=== PATIENT | male | born 1940 | race Caucasian/White ===

== ENCOUNTER 2017-01-22 11:07 | Inpatient (IN) | payer MEDICARE, BC ==
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
--- NOTE | ~2017-01-22 | CN ---
Consultation Report [facility] [address] [place]. [address] NAME: LYNN WILLIS : 39 STATUS : ADM IN PAT#: [id number] AGE: 76 ADM/REG DATE : 01/22/17 MR#: [id number] REPORT SERV DATE: 01/26/17 DICTATED BY: RAHAT MUNIZ DATE: 01/26/17 REPORT STATUS : Draft TRANSCRIBED BY: MODL DATE: 01/26/17 PALLIATIVE CARE CONSULTATION DATE OF CONSULTATION: 01/26/2017 This is a 1-hour consultation. ADR: To BRIAN eubanks. REASON FOR CONSULTATION: Severe cardiac and respiratory disease with progressive decline. BRIEF HISTORY: Mr. Willis is a 76-year-old white male has a longstanding history of endogenous obesity with increasing weight, poorly-controlled diabetes, and severe hypercapnic hypoxemic respiratory failure. He has been utilizing home O2 at approximately 6 L. His machine evidently goes as high as 8. He is now admitted with weight gain and signs and symptoms of cardiac disease superimposed upon his severe pulmonary disease. He underwent a cardiac catheterization showing significant LAD disease. He also has an echocardiogram showing a decline in his ejection fraction from 55% to 35%. Ventricular diastolic dysfunction is noted. He has a DNR and a living will on the chart. PAST MEDICAL HISTORY: Includes hypertension, question of obstructive sleep apnea likely obesity hypoventilation syndrome, COPD, a TIA in 2012 involving his right brain with some left-sided weakness and no residual. He has had multiple orthopedic problems and had a preserved ejection fraction till now. He is nearly blind in his left eye due to retinal detachment and two retinal operations. He also had a retinal reattachment of the right eye. He presented this time with atrial fibrillation which I believe is new. SOCIAL HISTORY: He is a very heavy smoker, having stopped some thirty years ago with having smoked two to five packs a day for some thirty years. He is , lives alone with a small dog, named "little bit." He has a fenced yard and he has been living independently. His daughter is his POA, she is an assistant county attorney, and has been very helpful in his care as has his son-in-law. He also has two grandsons, whom he is rebuilding a pair of [employer] cars and is hopeful that he can some days hopefully finish these before he dies. 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 No illicit drug use. Occasional alcohol in the past, very little now. REVIEW OF SYSTEMS: Includes increasing weight, fatigue, and weakness, hearing loss for which he wears hearing aids. He has ongoing chest pain and has had some leg swelling, shortness of breath, and cough. He has multiple orthopedic surgeries, a "dislocated spine" and does take pain medication throughout the day for symptom control. Consultation Report [place] [id number] [place]. [address] NAME: LYNN WILLIS : 39 STATUS : ADM IN [facility]#: [id number] AGE: 76 ADM/REG DATE : 01/22/17 MR#: [id number] REPORT SERV DATE: 01/26/17 DICTATED BY: RAHAT MUNIZ DATE: 01/26/17 REPORT STATUS : Draft TRANSCRIBED BY: JAIDEN DATE: 01/26/17 His current dyspnea score is 3/10, sitting at rest. His pain score is 4/10. His PPS is 50%. PHYSICAL EXAMINATION: VITAL SIGNS: Blood pressure is 106/64, his respiratory rate is 18 to 22, pulse 66 to 80 irregularly irregular, temperature 97.1, his 6 L pulse ox is 96%. GENERAL: We have an alert, morbidly obese gentleman with a BMI of 43, sitting in the edge of the bed, consuming his lunch. ENT: Hard of hearing. CARDIOVASCULAR: Irregularly irregular. S1 and S2. Distant heart sounds. CHEST: Auscultation of his chest shows coarse distant breath sounds with soft wheezes throughout. GI: Obese abdomen, nontender, no hernias. MUSCULOSKELETAL: Multiple joint complaints. NEUROLOGICAL: He is awake, alert, appropriate and cooperative. He moves all extremities spontaneously and to command. He has markedly decreased vision in the left eye, able to sense movement only. PSYCHIATRIC: He is appropriate and very concerned about his future, but does not believe that he is ready for hospice yet. SKIN: Warm and dry. There is 1+ edema in his lower extremities. There are some mild venous stasis changes. LABORATORY DATA: Reviewed, includes an A1c of 9.5, and albumin of 3.1. Pulmonary function testing was performed showing an FEV1/FVC of 71% of predicted normal, FVC 42%, FEV1 41% or 1.08 L, his diffusing capacity is decreased, but when adjusted for body surface area is a bit better. He is 5 feet 7 inches and weighs 274 pounds. DISCUSSION: This 76-year-old gentleman has a plethora of medical issues but, is not terribly insightful as it relates to his underlying medical issues and his prognosis, and he has had family exposures to hospice in the past and believes that this is something which is utilized in the last days of life. We will be discussing this with the daughter to try and support her care of him at home as I suspect and as I have warned him he may have very little warning when his condition declines. He is quite clear about the fact he does not want to be on life support etc. and I have stressed to him the fact that having extra support at home to try and prevent that from happening especially and an emergency setting is going to be critical. The patient's questions were answered to the best of our ability and he appeared to be appreciated with the visit. Contact phone information was provided. We will follow up with the patient if he is not discharged in the next 24 hours. RW/MODL Consultation Report [address] [place]. [address] NAME: LYNN WILLIS : 39 STATUS : ADM IN [facility]#: [id number] AGE: 76 ADM/REG DATE : 01/22/17 MR#: [id number] REPORT SERV DATE: 01/26/17 DICTATED BY: RAHAT MUNIZ DATE: 01/26/17 REPORT STATUS : Draft TRANSCRIBED BY: JAIDEN DATE: 01/26/17 Rahat Muniz M.D. / [id number] CC: Alberto Jones MD
--- NOTE | ~2017-01-22 | CN ---
Consultation Report [facility] [address] [place]. [address] NAME: LYNN REID : 39 STATUS : ADM IN [facility]#: [id number] AGE: 76 ADM/REG DATE : 01/22/17 MR#: [id number] REPORT SERV DATE: 01/23/17 DICTATED BY: AIDAN NUNES V. DATE: 01/22/17 REPORT STATUS : Draft TRANSCRIBED BY: MODL DATE: 01/22/17 RENAL CONSULT DATE OF CONSULTATION: 01/22/2017 REASON FOR CONSULTATION: Regarding chronic kidney disease management. HISTORY OF PRESENT ILLNESS: The patient is a 76-year-old gentleman with diabetes, obesity, and COPD, who is chronically on 6 L of oxygen at home. He was admitted to [facility] with increased shortness of breath and a creatinine of 1.3. He was given IV Lasix, seen by Cardiology, and felt that he would need evaluation for an ischemic workup. He was subsequently transferred to [facility] for coronary artery catheterization. The patient was found here on cardiac catheterization to have three-vessel coronary disease. Cardiac Surgery has seen the patient. The patient also underwent CTA earlier today and was found to have no evidence of pulmonary embolus. Was found to have pulmonary artery hypertension. No LV gram was done today. PAST MEDICAL HISTORY: 1. Hypertension. 2. Diabetes mellitus times at least 10 years. 3. Dyslipidemia. 4. Chronic respiratory failure with home O2 requirement of 6 L. 5. COPD. 6. TIA in 2012. No known chronic kidney disease. Had no urinary microalbumin in 09/2016. ALLERGIES: INCLUDE CODEINE. MEDICATIONS: At home included albuterol, vitamin C, aspirin, Lumigan, vitamin B12, Lasix, gabapentin, glipizide, lisinopril and hydrochlorothiazide, metformin, multivitamin, oxycodone, potassium, pravastatin, and Spiriva. SOCIAL HISTORY: Former heavy smoker. FAMILY HISTORY: Remarkable for coronary disease and heart failure. SURGICAL HISTORY: He has had cataract surgery and carpal tunnel release. REVIEW OF SYSTEMS: All review of systems was otherwise negative except as described above. PHYSICAL EXAMINATION: VITAL SIGNS: Temperature is 98.2, heart rate 72, blood pressure 113/82. Consultation Report [facility] [address] [place]. [address] NAME: LYNN REID : 39 STATUS : ADM IN PAT#: [id number] AGE: 76 ADM/REG DATE : 01/22/17 MR#: [id number] REPORT SERV DATE: 01/23/17 DICTATED BY: AIDAN NUNES V. DATE: 01/22/17 REPORT STATUS : Draft TRANSCRIBED BY: JAIDEN DATE: 01/22/17 GENERAL: He is a pleasant, obese gentleman with no increased work of breathing at rest. HEENT: Pupils equal, round, and reactive to light. Sclerae were anicteric. Oropharynx is clear with no lesions. NECK: Trachea midline. No thyromegaly. No supraclavicular nodes. No axillary lymph nodes. A few scattered rhonchi bilaterally. HEART: Regular rate and rhythm. No rub. ABDOMEN: Obese. Nondistended. Bowel sounds are physiologic. Trace lower extremity edema. No clubbing. No cyanosis. SKIN: Warm and dry. No rash or lesions. LABORATORY DATA: BUN and creatinine of 50 and 1.3, potassium 4.5, hemoglobin A1c of 9.5%, hemoglobin of 11.5. IMPRESSION: A 76-year-old gentleman with obesity and now coronary artery disease in addition to his chronic hypoxic respiratory failure. He may have chronic kidney disease secondary to longstanding hypertension and diabetes mellitus. His advanced age also is a risk factor for chronic kidney disease. The patient has had two contrasted procedures today to include a CTA and left heart catheterization and will have to be watched closely for post contrast- induced nephropathy. PLAN: 1. Agree with cessation of JED and Lasix. 2. A.m. labs. 3. Obtain urine studies. 4. Obtain renal ultrasound. Partners to see tomorrow, obviously has at least [id number] risk factor for acute kidney injury in the setting of coronary bypass grafting. He also has significant pulmonary morbidity given his underlying hypoxia. Case was also discussed with Dr. Jones. DOUG/JADIEN Aidan uNnes M.D. / [id number] CC: Alberto Jones MD
--- NOTE | ~2017-01-22 | PUL ---
[address] [address] NAME: LYNN REID : 39 STATUS : DIS IN PAT#: [id number] AGE: 76 ADM/REG DATE : 01/22/17 MR#: [id number] REPORT SERV DATE: 01/31/17 DICTATED BY: JACK ALBRIGHT DATE: 01/30/17 REPORT STATUS : Draft TRANSCRIBED BY: MODL DATE: 01/30/17 PULMONARY FUNCTION TEST FEV1 of 1.08 L or 41% predicted. Forced vital capacity 1.52 L or 42% predicted. FEV1/FVC of 71%. DLCO of 16%. INTERPRETATION: Normal airflow. Decreased forced vital capacity. This may indicate poor effort, neuromuscular weakness, or restriction. Consider lung volume testing clinically indicated. No significant bronchodilator response. Very severe decreased DLCO. The patient is too exhausted to perform body box. He is on 6 L nasal cannula. No previous studies are available at this facility. REMEDIOS/JAIDEN Jack Albright M.D. / [id number] CC: MD Alberto Pinon MD
--- NOTE | ~2017-01-22 | DS ---
Discharge Summary [facility] [address] [place]. [address] NAME: LYNN REID : 39 STATUS : DIS IN PAT#: [id number] AGE: 76 ADM/REG DATE : 01/22/17 MR#: [id number] REPORT SERV DATE: 01/28/17 DICTATED BY: FANNIE MAHONEY DATE: 01/27/17 REPORT STATUS : Draft TRANSCRIBED BY: JAIDEN DATE: 01/27/17 ADMISSION DATE: 01/22/2017 DISCHARGE DATE: 01/27/2017 CONSULTATION: 1. Cardiology Dr. Mehran Pond. 2. Cardiothoracic Surgery, Dr. Abner Humphries. 3. Nephrology Dr. Aidan Nunes. 4. Pulmonology Dr. Dane Booth. 5. Palliative Care, Dr. Suresh Muniz. PROCEDURES DONE DURING ADMISSION: Left heart catheterization. CONCLUSION: 1. Severe three vessel flow limiting coronary artery disease. 2. Elevated left ventricular end-diastolic filling pressure. LVEDP 21 mmHg. 3. Left ventriculogram not performed due to chronic kidney disease. 4. Recent echocardiogram September 2016 with normal left ventricular function. RECOMMENDATION: 1. Referral to Cardiothoracic Surgery for consideration for coronary artery bypass grafting during this admission. 2. Intensify medical management and risk factor modification. DISCHARGE DIAGNOSES: 1. Multi-vessel coronary artery disease (known surgical candidate per Cardiothoracic Surgery). 2. Acute on chronic diastolic heart failure. 3. Uncontrolled diabetes. 4. Chronic obstructive pulmonary disease. 5. Chronic hypoxic respiratory failure on home oxygen at 6 L via nasal cannula. 6. 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 7. Previous history of transient ischemic attack. HISTORY OF PRESENT ILLNESS: For detailed HPI, please make reference to Dr. oBo Blanco's dictation on 01/21/2017. This is a 76-year-old male with medical history of COPD on home O2 at 6 L who presented to the emergency room of [facility] with complaints of dyspnea, generalized weakness, near syncopal episode occurring over the last four to five days. He had a CT-PA in the emergency room that was negative for a PE. During the course of the admission, the patient was noted to have elevated troponin as well as elevated BNP. The patient was started on IV diuretics. Duo-Nebs were intensified, and Cardiology was consulted for further recommendations as regard to elevated troponin. Dr. Mehran Pond evaluated the patient and recommended the patient to be transferred to [facility] for coronary arteriogram. Discharge Summary [address] [place]. [address] NAME: LYNN REID : 39 STATUS : DIS IN PAT#: [id number] AGE: 76 ADM/REG DATE : 01/22/17 MR#: [id number] REPORT SERV DATE: 01/28/17 DICTATED BY: FANNIE MAHONEY DATE: 01/27/17 REPORT STATUS : Draft TRANSCRIBED BY: MODDidi DATE: 01/27/17 HOSPITAL COURSE: At [facility], the patient underwent a left coronary arteriogram and was found to have severe 3 vessel flow limiting coronary artery disease. Cardiology recommended referral to Cardiothoracic Surgery for consideration for coronary artery bypass grafting. Cardiothoracic Surgery after further deliberation amongst the cardiothoracic team, the patient was noted to be significantly high risk for surgical intervention. Hence, it was recommended for patient to have conservative medical therapy. Reason for the patient's being high-risk include the patient's known pulmonary disease, the patient's known chronic respiratory failure as well as chronic kidney disease as well as the patient's body habitus. All of these put patient at significant high-risk that is prohibitive to surgery. After discussion with the family with the patient and his daughter, Palliative Care team was consulted. Family at this point declined initiating hospice care. Family and the daughter says that she will contact [facility] when she gets home in order to initiate hospice services. The patient's POLST form was filled out during the course of this admission. Code status per family but the patient's and daughter's wishes was now updated to be DNR. At the time of discharge, the patient continued to require 6 L of oxygen at baseline, had no further episodes of chest pain. The patient agrees to continue followup with Cardiology, Pulmonology, and primary care physician as outpatient. DISCHARGE MEDICATION: 1. Aspirin 81 mg p.o. daily. 2. Lipitor 40 mg at bedtime. 3. Coreg 3.125 mg p.o. b.i.d. 4. Plavix 75 mg p.o. daily. 5. Vitamin B12 100 mcg p.o. daily. 6. Cosopt ophthalmic solution one drop three to four times daily. 7. Lasix 40 mg p.o. b.i.d. 8. Gabapentin 600 mg t.i.d. 9. Insulin Aspart corrective pre-meal sliding scale. 10.Aspart 10 units with meals t.i.d. 11.Levemir 20 units b.i.d. 12.Imdur 15 mg p.o. b.i.d. 13.Lumigan 0.1% solution drops at bedtime. 14.Multivitamins one tab p.o. daily. 15.Spiriva 1 inhaler b.i.d. 16.Proventil inhaler every four hours p.r.n. 17.DuoNebs every 6 hours p.r.n. 18.Symbicort 1 puff b.i.d. 19.Lisinopril 20/12.5 one tab p.o. daily. 20.Percocet 10 mg/325 mg tab p.o. p.r.n. for pain. 21.Artificial Tears 1 drop b.i.d. 22.Potassium chloride 10 mEq p.o. daily. DISCHARGE FOLLOWUP: 1. To follow up with primary care physician within one to two weeks of discharge. Discharge Summary [address] [address] NAME: LYNN REID : 39 STATUS : DIS IN PAT#: [id number] AGE: 76 ADM/REG DATE : 01/22/17 MR#: [id number] REPORT SERV DATE: 01/28/17 DICTATED BY: FANNIE MAHONEY DATE: 01/27/17 REPORT STATUS : Draft TRANSCRIBED BY: JAIDEN DATE: 01/27/17 2. Follow up with Pulmonology and Cardiology as an outpatient within three to four weeks of discharge. DISCHARGE ACTIVITIES: As tolerated. DISCHARGE CONDITION: Prognosis guarded. All the patient's and daughter's questions were addressed at the time of discharge. The patient and daughter were both in agreement with this discharge plan. HARPAL/JAIDEN Fannie Mahoney MD / [id number] CC: MD Alberto Pinon MD
--- NOTE | ~2017-01-22 | CN ---
Consultation Report [facility] [address] [place]. [address] NAME: LYNN REID : [id number] STATUS : ADM IN PAT#: [id number] AGE: 76 ADM/REG DATE : 01/22/17 MR#: [id number] REPORT SERV DATE: 01/22/17 DICTATED BY: PETER CALERO DATE: 01/22/17 REPORT STATUS : Draft TRANSCRIBED BY: MODL DATE: 01/22/17 CONSULT REPORT DATE OF CONSULTATION: 01/22/2017 NURSE-PRACTITIONER WITH [facility] REASON FOR CONSULTATION: Multivessel coronary artery disease. HISTORY OF PRESENT ILLNESS: This is a 76-year-old morbidly obese, male, with extensive past medical history including COPD with chronic hypoxic respiratory failure on 6 L per nasal cannula at baseline. He also has a history of high blood pressure, poorly controlled type 2 diabetes mellitus, hyperlipidemia, and chronic deconditioning. He presented to his primary care provider yesterday morning with complaints of shortness of breath and wheezing. He also reported weight gain of nearly 10 pounds in two weeks with pre syncopal episodes. The patient was initially admitted to [facility] and treated with IV Lasix and transferred here due to a mildly elevated troponin and elevated BNP. The patient was admitted with NSTEMI and taken for cardiac catheterization today and found to have severe multivessel coronary artery disease including a 30% stenosis to his left main coronary artery and 90% stenosis to his mid LAD with a diminutive probably underfilled mid to distal LAD. The very distal portion of the vessel was long segment almost thread-like suggestive of severe diffuse disease. There is a diminutive 1st diagonal and 2nd diagonal, has a small caliber long bifurcating vessel with a 90% ostial stenosis. The left circumflex is a small caliber lesion with a 99% tubular proximal stenosis, a diminutive first obtuse marginal and 80% proximal RCA. LV-gram was not performed due to elevated creatinine. Cardiothoracic Surgery has been asked to evaluate the patient for what will most likely be high risk CABG versus conservative measures which may include stenting and medications. Currently, the patient is recovering after cardiac catheterization. He has no complaints at this time but does admit to moderate amount of dyspnea on exertion. I asked if he would be able to walk with me how long he could walk, he says that he could walk around 50 feet before becoming extremely short of breath and having to rest. His O2 saturation is 90% on 6 L. Right now, his daughter and son-in-law are present at the bedside with him. PAST MEDICAL HISTORY: Significant for COPD with chronic hypoxic respiratory failure, on 6 L per nasal cannula at home. High blood pressure, poorly controlled type 2 diabetes mellitus, morbid obesity, likely pulmonary hypertension, TIA in 2013 with left-sided weakness. Left sided blindness with retinal detachment. PAST SURGICAL HISTORY: Bilateral carpal tunnel release, right rotator cuff repair, bilateral retinal detachment, and bilateral cataract surgery. SOCIAL HISTORY: He is , retired. He lives alone with small dog. He quit smoking 25 years ago. Denies any history of alcohol abuse or use of illicit drugs. He is chronically debilitated and reports not leaving his house very much. Consultation Report [address] [place]. [address] NAME: LYNN REID : [id number] STATUS : ADM IN [facility]#: [id number] AGE: 76 ADM/REG DATE : 01/22/17 MR#: [id number] REPORT SERV DATE: 01/22/17 DICTATED BY: PETER CALERO DATE: 01/22/17 REPORT STATUS : Draft TRANSCRIBED BY: JAIDEN DATE: 01/22/17 FAMILY HISTORY: His father at the age of 69 from heart failure. ALLERGIES: NO KNOWN DRUG ALLERGIES. HOME MEDICATIONS: Albuterol metered dose inhaler 1 puff every 4 hours as needed; Artificial Tears 1 drop in each eye twice daily as needed; vitamin C 500 mg p.o. daily; aspirin 81 mg p.o. daily; Lumigan 1 drop in left eye at bedtime; vitamin B12 100 mcg p.o. daily; Cosopt eye drops 1 drop 3-4 times a day in the left eye; Lasix 20 mg p.o. twice daily; Neurontin 300 mg p.o. q.6 hours; glipizide 5 mg p.o. daily; lisinopril/hydrochlorothiazide 20/12.5 one tablet p.o. daily; metformin 500 mg p.o. twice a day; multivitamin tablet one pill p.o. twice daily; oxycodone 10/325 p.o. daily as needed; potassium chloride 10 mEq p.o. daily as needed; pravastatin 20 mg p.o. daily; Spiriva HandiHaler one capsule inhaled daily. REVIEW OF SYSTEMS: A 10-point review of systems was obtained and is negative other than HPI. LABORATORY DATA: From today, white blood cell count 8.5, hemoglobin 11.5, hematocrit 37, platelets 153. Sodium 142, potassium 4.5, chloride 97, bicarbonate 36, BUN 50, creatinine 1.3. Glucose 200. Hemoglobin A1c 9.5. IMAGING: Chest PA and lateral 01/21/2017 showed cardiomegaly with mild course in parahilar central interstitial markings suggestive of mild interstitial pulmonary edema, subsegmental atelectasis in the right lung base. Venous Doppler of the lower extremity on 01/21/2017 to rule out DVT showed no lower extremity deep venous thrombus and a right Morillo cyst measuring 5.5 x 3[address] angiogram of the chest on 01/22/2017 showed no CTA evidence of pulmonary embolism. There is cardiomegaly with mild coronary artery calcifications, trace pericardial effusions. There is an enlarged main pulmonary artery consistent with CT evidence of pulmonary artery hypertension, mediastinal and left hilar adenopathy of uncertain clinical significance. Differential diagnosis could be adenopathy, non-calcified granulomatous disease, lymphoma or metastatic disease. PHYSICAL EXAMINATION: VITAL SIGNS: From today, temperature 98.2, heart rate 70, blood pressure 105/56, respiratory rate 22, and O2 saturation 90% on 6 L. GENERAL: A pleasant morbidly obese, ill-appearing male in no acute distress but appears very weak. NEURO: Alert and oriented x3. Pupils are equal, round, reactive to light and accommodation. He has moderate strength which is equal bilaterally with upper extremities and lower extremities. PSYCH: Flat affect which seems to be his baseline, friendly though, and talkative. HEENT: Head is normocephalic and atraumatic. Nose is midline with no abnormalities. Ears with no mass or abnormalities. Fair dentition overall with no obvious caries or abscesses. Sclerae are clear. Consultation Report [facility] [id number] [place]. [address] NAME: LYNN REID : [id number] STATUS : ADM IN [facility]#: [id number] AGE: 76 ADM/REG DATE : 01/22/17 MR#: [id number] REPORT SERV DATE: 01/22/17 DICTATED BY: PETER CALERO DATE: 01/22/17 REPORT STATUS : Draft TRANSCRIBED BY: JAIDEN DATE: 01/22/17 NECK: Supple with no obvious thyromegaly or lymphadenopathy. Carotids on auscultation with no obvious bruits. LUNGS: Coarse lung sounds bilaterally with diminished bases bilaterally. CARDIAC: S1-S2 with no murmurs, rubs, or gallops. ABDOMEN: Obese soft, nontender, with active bowel sounds x4 quadrants. EXTREMITIES: Free of cyanosis, clubbing, has trace bilateral lower extremity edema around the area of the ankles. ASSESSMENT AND PLAN: This is a 76-year-old morbidly obese, male with extensive past medical history and multiple comorbidities who was admitted with shortness of breath and weight gain, elevated BNP, and mildly elevated troponin consistent with an NSTEMI and acute exacerbation of heart failure. The patient was found to have significant flow- limiting coronary artery disease per arteriogram today with very small vessels and target suggestive of chronic disease. The patient needs what would be a high risk CAB. I discussed the risks and benefits of surgery as well as his STS risk scores. STS risk stratification for him and that this particular surgery right now are calculated with an overall mortality around 13% to 15% and a morbidity mortality around 56%. I discussed these findings with the patient in relation to surgery and expectations for recovery. The patient says that he is not sure whether he wants to proceed with surgical intervention at this time. The patient is considering his options but does not want to spend any time in a [facility] facility. He is concerned that if he had surgery, he might not be able to go home. His daughter and son-in-law are with him at the bedside and are supportive of his decision. I spoke with Dr. Ortiz over the phone regarding plan of care, and he will come by later to review images and talk to the patient. His STS risk stratification is almost prohibitive for surgical intervention. Dr. Ortiz will review images, talk to the patient, and then talk to Dr. Steele about the options which would include high risk CAB versus conservative measures which may include PCI, optimization of medical management. We would like to thank you for the consultation. Please let us know if we could be of any further assistance. BAHMAN/JAIDEN Peter Calero NP / [id number] CC: Alberto Jones MD
--- NOTE | ~2017-01-22 | PUL ---
[address] [address] NAME: LYNN REID : [id number] STATUS : DIS IN PAT#: [id number] AGE: 76 ADM/REG DATE : 01/22/17 MR#: [id number] REPORT SERV DATE: 01/31/17 DICTATED BY: JACK ALBRIGHT DATE: 01/30/17 REPORT STATUS : Draft TRANSCRIBED BY: MODL DATE: 01/30/17 PULMONARY FUNCTION TEST Overnight oximetry was performed on 6 L nasal cannula. Total valid sampling time was 6 hours 25 minutes and 17 seconds. Saturations were less than 88% for only 34 seconds. INTERPRETATION: Normal oximetry report while on 6 L. REMEDIOS/JAMESONL Jack Albright M.D. / [id number] CC: MD Alberto Pinon MD
[~2017-01-22 11:07] MED LIST: ADVIL PO; ASAB PO; B12100T PO; COSOPT OPH; DIABETA5 PO; DORZOLAMIDE2 % OPH; FISH-EPA1000 MG PO; FORTAMET500 MG PO; GLUCOPHAGE1000 MG PO; GLUCPH PO; GLUCXL5 PO; KLOR-CON 1010 MEQ PO; L40 PO; LEVAQUIN750 MG PO; LIPITOR10 PO; LUMIGAN2.5 ML OPH; NEUR300 PO; NEUR600 PO; OCUVITE PO; ONGLYZA5 MG PO; PCET PO; PERCOCET 10/3251 TAB PO; PRAVAC PO; PRINZIDE1 TA1 PO; PROVHFA INH; REFRESH OPH; SPIRIVA INH; VITAMIN B-12 OTC PO; VITAMIN C OTC PO; VITAMIN D OTC PO; VITAMIN D400 UNI1 PO; VITAMIN E OTC PO; VITC500 PO; VITE1000 PO; XALAT OPH; ZESTORETIC PO; ZOCOR20 PO; [UNRECOGNIZED DRUG - REMARK]
[2017-01-23 04:14] LABS: BE (BASE EXCESS) 8.9 MEQ/L (0 +/- 2.5); CARBOXYHEMOGLOBIN 0.6 % (0-3); DEVICE NC; HCO3 (ACTUAL BICARBONATE) 35.5 MEQ/L (23-27); HEMOBLOGIN CONTENT 11.8 G/DL (14-18); INSTRUMENT SERIAL # 8083; METHEMOGLOBIN 0.1 % (0-3); O2 CONTENT 15.1 VOL% (18-24); OPERATOR ID 30013; PCO2 (CO2 TENSION) 59 MMHG (35-45); PO2 (O2 TENSION) 64 MMHG (79-93); SAMPLE Arterial
[2017-01-23 04:52] LABS: BASOPHILS 0.4 %; BASOPHILS ABSOLUTE 0.03 10/3/uL (0.0-0.16); EOSINOPHILS 3.6 %; EOSINOPHILS ABSOLUTE 0.28 10/3/uL (0.0-0.53); HEMATOCRIT 36.8 % (40.0-51.0); IMMATURE GRANULOCYTES 0.1 %; IMMATURE GRANULOCYTES ABSOLUTE 0.01 10/3/uL (0.0-0.11); LYMPHOCYTES 15.8 %; LYMPHOCYTES ABSOLUTE 1.23 10/3/uL (0.67-4.30); MEAN CORPUS HGB CONC 32.6 g/dL (32.0-36.0); MEAN CORPUSCULAR HEMOGLOB 30.7 pg (26.0-34.0); MEAN CORPUSCULAR VOLUME 94.1 fL (80-100); MEAN PLATELET VOLUME 10.5 fL (9.2-13.0); MONOCYTES 9.6 %; MONOCYTES ABSOLUTE 0.75 10/3/uL (0.21-1.20); NEUTROPHILS 70.5 %; NEUTROPHILS ABSOLUTE 5.48 10/3/uL (2.02-8.40); PLATELET COUNT 149 10/3/uL (150-400); RBC DISTRIBUTION WIDTH 14.4 % (12.0-16.0); RED CELL COUNT 3.91 10/6/uL (4.7-6.1); WHITE BLOOD CELLS 7.8 10/3/uL (4.5-10.5)
[2017-01-23 04:53] LABS: MANUAL DIFF NO %
[2017-01-23 05:08] LABS: INTERNATIONAL NORMAL RATI 1.2 UNITS (-); PROTIME (NOT ORD) 14.8 SEC (12.0-14.5)
[2017-01-23 05:25] LABS: ALBUMIN 3.4 G/DL (3.5-5.0); ALKALINE PHOSPHATASE 62 U/L (45-117); CALCIUM, SERUM 9.3 MG/DL (8.5-10.4); CHLORIDE, SERUM 101 MMOL/L (96-112); CO2 (CARBON DIOXIDE) 35 MMOL/L (24-34); CREATININE 1.12 MG/DL (0.70-1.30); GFR AFRICAN AMERICAN 73 ML/MIN (>=60); GFR NON AFRICAN AMERICAN 63 ML/MIN (>=60); GLOBULIN 3.4 G/DL (2.5-4.1); GLUCOSE, SERUM 180 MG/DL (60-99); PHOSPHORUS, SERUM 3.4 MG/DL (2.5-4.5); POTASSIUM, SERUM 4.2 MMOL/L (3.5-5.3); SGOT(AST) 14 U/L (5-40); SGPT(ALT) 26 U/L (5-65); SODIUM, SERUM 144 MMOL/L (135-148); TOTAL BILIRUBIN 0.5 MG/DL (0-1.2); TOTAL PROTEIN 6.8 G/DL (6.0-8.5)
[2017-01-23 05:35] LABS: BUN (BLOOD UREA NITROGEN) 39 MG/DL (6-23)
[2017-01-23 05:51] LABS: ASCORBIC ACID (UR NOT ORDER) 40 (NEG); BILIRUBIN, URINE NEGATIVE (NEG); KETONE, URINE NEGATIVE (NEG); LEUKOCYTE ESTERASE(NOT OR NEG (NEG); WBC (NOT ORDERED) (RFLEX) < 1 (0-5)
[2017-01-23 05:55] LABS: T PROTEIN (ELECT)(NOT OR 6.3 G/DL (6.0-8.5)
[2017-01-23 07:13] LABS: CREATININE, URINE 85.7 MG/DL
[2017-01-24 07:23] LABS: BASOPHILS 0.4 %; BASOPHILS ABSOLUTE 0.03 10/3/uL (0.0-0.16); EOSINOPHILS 3.7 %; EOSINOPHILS ABSOLUTE 0.27 10/3/uL (0.0-0.53); HEMATOCRIT 35.2 % (40.0-51.0); HEMOGLOBIN 11.4 g/dL (13.6-17.8); IMMATURE GRANULOCYTES 0.3 %; IMMATURE GRANULOCYTES ABSOLUTE 0.02 10/3/uL (0.0-0.11); LYMPHOCYTES 14.6 %; LYMPHOCYTES ABSOLUTE 1.07 10/3/uL (0.67-4.30); MEAN CORPUS HGB CONC 32.4 g/dL (32.0-36.0); MEAN CORPUSCULAR HEMOGLOB 30.5 pg (26.0-34.0); MEAN CORPUSCULAR VOLUME 94.1 fL (80-100); MEAN PLATELET VOLUME 10.8 fL (9.2-13.0); MONOCYTES 8.2 %; NEUTROPHILS 72.8 %; NEUTROPHILS ABSOLUTE 5.34 10/3/uL (2.02-8.40); PLATELET COUNT 140 10/3/uL (150-400); RBC DISTRIBUTION WIDTH 14.6 % (12.0-16.0); RED CELL COUNT 3.74 10/6/uL (4.7-6.1); WHITE BLOOD CELLS 7.3 10/3/uL (4.5-10.5)
[2017-01-24 07:24] LABS: MANUAL DIFF NO %
[2017-01-24 07:36] LABS: CALCIUM, SERUM 8.8 MG/DL (8.5-10.4); CHLORIDE, SERUM 99 MMOL/L (96-112); CO2 (CARBON DIOXIDE) 35 MMOL/L (24-34); CREATININE 0.96 MG/DL (0.70-1.30); GFR AFRICAN AMERICAN 88 ML/MIN (>=60); GFR NON AFRICAN AMERICAN 76 ML/MIN (>=60); GLUCOSE, SERUM 205 MG/DL (60-99); POTASSIUM, SERUM 3.7 MMOL/L (3.5-5.3); SODIUM, SERUM 144 MMOL/L (135-148)
[2017-01-24 07:37] LABS: BUN (BLOOD UREA NITROGEN) 31 MG/DL (6-23)
[2017-01-25 06:28] LABS: BASOPHILS 0.2 %; BASOPHILS ABSOLUTE 0.02 10/3/uL (0.0-0.16); EOSINOPHILS 3.5 %; EOSINOPHILS ABSOLUTE 0.28 10/3/uL (0.0-0.53); HEMATOCRIT 35.9 % (40.0-51.0); HEMOGLOBIN 11.7 g/dL (13.6-17.8); IMMATURE GRANULOCYTES 0.2 %; IMMATURE GRANULOCYTES ABSOLUTE 0.02 10/3/uL (0.0-0.11); LYMPHOCYTES 19.9 %; LYMPHOCYTES ABSOLUTE 1.59 10/3/uL (0.67-4.30); MEAN CORPUS HGB CONC 32.6 g/dL (32.0-36.0); MEAN CORPUSCULAR HEMOGLOB 30.5 pg (26.0-34.0); MEAN CORPUSCULAR VOLUME 93.7 fL (80-100); MEAN PLATELET VOLUME 10.4 fL (9.2-13.0); MONOCYTES 9.9 %; MONOCYTES ABSOLUTE 0.79 10/3/uL (0.21-1.20); NEUTROPHILS 66.3 %; NEUTROPHILS ABSOLUTE 5.31 10/3/uL (2.02-8.40); PLATELET COUNT 139 10/3/uL (150-400); RED CELL COUNT 3.83 10/6/uL (4.7-6.1)
[2017-01-25 06:38] LABS: MANUAL DIFF NO %
[2017-01-25 06:39] LABS: BUN (BLOOD UREA NITROGEN) 32 MG/DL (6-23); CALCIUM, SERUM 9.1 MG/DL (8.5-10.4); CHLORIDE, SERUM 102 MMOL/L (96-112); CO2 (CARBON DIOXIDE) 35 MMOL/L (24-34); CREATININE 1.08 MG/DL (0.70-1.30); GFR AFRICAN AMERICAN 76 ML/MIN (>=60); GFR NON AFRICAN AMERICAN 66 ML/MIN (>=60); GLUCOSE, SERUM 203 MG/DL (60-99); POTASSIUM, SERUM 4.2 MMOL/L (3.5-5.3); SODIUM, SERUM 143 MMOL/L (135-148)
[2017-01-25 09:41] LABS: A/G 1.54 RATIO (0.9-2.10); ALB RELATIVE % 60.6 % (60.0-89.0); ALBUMIN (ELECTRO) 3.82 GM/DL (3.2-5.5); ALPHA 1 (ELECTRO) 0.16 GM/DL (0.1-0.4); ALPHA 1 RELAT % (NOT ORD) 2.6 % (1.0-4.0); ALPHA 2 (ELECTRO) 0.72 GM/DL (0.5-1.10); ALPHA 2 RELAT % 11.4 % (4.5-26.0); BETA GLOBULIN (SPE) 0.88 GM/DL (0.60-1.30); BETA RELATIVE % 13.9 % (9.0-22.0); GAMMA GLOBULIN (SPE) 0.72 G/DL (0.70-1.60); GAMMA RELAT % 11.5 % (6.0-22.0)
[2017-01-25 12:57] LABS: PROCALCITONIN <0.05 ng/mL (<0.5)
[2017-01-26 05:48] LABS: BASOPHILS 0.4 %; BASOPHILS ABSOLUTE 0.03 10/3/uL (0.0-0.16); EOSINOPHILS 4.2 %; EOSINOPHILS ABSOLUTE 0.34 10/3/uL (0.0-0.53); HEMATOCRIT 36.3 % (40.0-51.0); HEMOGLOBIN 11.6 g/dL (13.6-17.8); IMMATURE GRANULOCYTES 0.2 %; IMMATURE GRANULOCYTES ABSOLUTE 0.02 10/3/uL (0.0-0.11); LYMPHOCYTES 19.1 %; LYMPHOCYTES ABSOLUTE 1.54 10/3/uL (0.67-4.30); MEAN CORPUSCULAR HEMOGLOB 30.3 pg (26.0-34.0); MEAN CORPUSCULAR VOLUME 94.8 fL (80-100); MEAN PLATELET VOLUME 10.4 fL (9.2-13.0); MONOCYTES 7.7 %; MONOCYTES ABSOLUTE 0.62 10/3/uL (0.21-1.20); NEUTROPHILS 68.4 %; NEUTROPHILS ABSOLUTE 5.53 10/3/uL (2.02-8.40); PLATELET COUNT 143 10/3/uL (150-400); RBC DISTRIBUTION WIDTH 14.6 % (12.0-16.0); RED CELL COUNT 3.83 10/6/uL (4.7-6.1); WHITE BLOOD CELLS 8.1 10/3/uL (4.5-10.5)
[2017-01-26 05:49] LABS: MANUAL DIFF NO %
[2017-01-26 06:03] LABS: A/G RATIO 0.9 (0.7-1.9); ALBUMIN 3.1 G/DL (3.5-5.0); ALKALINE PHOSPHATASE 55 U/L (45-117); BUN (BLOOD UREA NITROGEN) 30 MG/DL (6-23); CALCIUM, SERUM 8.9 MG/DL (8.5-10.4); CHLORIDE, SERUM 102 MMOL/L (96-112); CO2 (CARBON DIOXIDE) 36 MMOL/L (24-34); CREATININE 1.02 MG/DL (0.70-1.30); GFR AFRICAN AMERICAN 82 ML/MIN (>=60); GFR NON AFRICAN AMERICAN 71 ML/MIN (>=60); GLOBULIN 3.3 G/DL (2.5-4.1); GLUCOSE, SERUM 185 MG/DL (60-99); POTASSIUM, SERUM 4.3 MMOL/L (3.5-5.3); SGOT(AST) 24 U/L (5-40); SGPT(ALT) 31 U/L (5-65); SODIUM, SERUM 142 MMOL/L (135-148); TOTAL BILIRUBIN 0.4 MG/DL (0-1.2); TOTAL PROTEIN 6.4 G/DL (6.0-8.5)
[2017-01-27] MEDS ORDERED: COREG3 PO (12:33)
[2017-01-27] MEDS ORDERED: ALBUTEROL0.63 MG/3 INH (12:33)
[2017-01-27] MEDS ORDERED: IMDUR30 PO (12:34)
[2017-01-27] MEDS ORDERED: LIPITOR40 PO (12:34)
[2017-01-27] MEDS ORDERED: PLAVIX PO (12:34)
[2017-01-27] MEDS ORDERED: NITROQUICK0.4 MG SL (12:36)
[2017-01-27] MEDS ORDERED: NOVOLOG SC (12:37)
[2017-01-27] MEDS ORDERED: SYMBICORT 160/41 INH INH (12:38)
[2017-01-27] MEDS ORDERED: LEVEMIR SC (12:39)
== END 2017-01-27 15:00 | disposition home or self-care (01) | DRG 280 ==
LOC: CORLMH 11:07 → SSU1 12:50 → 5NO 22:06
PROVIDERS: Internal Medicine Nephrology; Student in an Organized Health Care Education/Training Program
PROC: 4A023N7 Measurement of Cardiac Sampling and Pressure, Left Heart, Percutaneous Approach (ICD-10-PCS; principal; 2017-01-22)
PROC: B2111ZZ Fluoroscopy of Multiple Coronary Arteries using Low Osmolar Contrast (ICD-10-PCS; 2017-01-22)
DX: I21.4 Non-ST elevation (NSTEMI) myocardial infarction (principal); I50.33 Acute on chronic diastolic (congestive) heart failure; J96.11 Chronic respiratory failure with hypoxia; I27.2 Other secondary pulmonary hypertension; J96.12 Chronic respiratory failure with hypercapnia; E11.22 Type 2 diabetes mellitus with diabetic chronic kidney disease; E66.2 Morbid (severe) obesity with alveolar hypoventilation; Z68.41 Body mass index [BMI] 40.0-44.9, adult; I13.0 Hypertensive heart and chronic kidney disease with heart failure and stage 1 through stage 4 chronic kidney disease, or unspecified chronic kidney disease; I25.10 Atherosclerotic heart disease of native coronary artery without angina pectoris; E11.65 Type 2 diabetes mellitus with hyperglycemia; J44.9 Chronic obstructive pulmonary disease, unspecified; E78.5 Hyperlipidemia, unspecified; Z86.73 Personal history of transient ischemic attack (TIA), and cerebral infarction without residual deficits; Z87.891 Personal history of nicotine dependence; Z79.84 Long term (current) use of oral hypoglycemic drugs; Z51.5 Encounter for palliative care; H54.42 Blindness, left eye, normal vision right eye; N18.9 Chronic kidney disease, unspecified; Z66 Do not resuscitate; Z99.81 Dependence on supplemental oxygen
CPT/HCPCS: 36600; 71020; 71275; 76775; 80048; 80053; 80069; 81001; 82550; 82570; 82805; 82962; 83036; 83735; 83880; 84145; 84155; 84156; 84165; 84300; 84443; 84484; 85025; 85379; 85610; 85730; 87070; 87077; 87186; 87205; 93005; 93458; 93970; 94060; 94640; 94729; 99152; 99153; A9270-GY; C1769; C1887; C1894; C8924; J1940; J2250; J3010; Q9957; Q9967